=== PATIENT | male | born 1990 | race Caucasian/White ===

== ENCOUNTER 2023-09-07 01:54 | Inpatient (IN) | payer MEDICAID ==
[~2023-09-07] VITALS: Ht 175.3 cm; Wt 113.4 kg
[2023-09-07 02:00] VITALS: BP 146/80; PULSE 125; RESP 13; TEMP 96.1; O2SAT 100
[2023-09-07 02:09] LABS: BASOPHILS # (AUTO) 0.1 K/uL (0.00-0.22); BASOPHILS % (AUTO) 0.6 % (0.0-2.0); EOSINOPHILS # (AUTO) 0.2 K/uL (0-0.4); EOSINOPHILS % (AUTO) 1.5 % (0.0-4.0); HEMATOCRIT 40.1 % (36-52); HEMOGLOBIN 13.8 g/dL (12.0-18.0); LYMPHOCYTES # (AUTO) 8.7 K/uL (2.0-11.5); MEAN CORPUSCULAR HEMOGLOBIN 32 pg (27-31); MEAN CORPUSCULAR HGB CONC 34 g/dL (33-37); MEAN CORPUSCULAR VOLUME 93.2 fL (80-94); MONOCYTES # (AUTO) 0.8 K/uL (0.8-1.0); MONOCYTES % (AUTO) 5.9 % (1.7-9.3); NEUTROPHILS # (AUTO) 4.5 K/uL (1.8-7.7); NEUTROPHILS % (AUTO) 31.5 % (42.2-75.2); PLATELET COUNT (AUTO) 273 K/uL (140-450); RED BLOOD CELL COUNT(AUTO) 4.31 MIL/uL (4.20-6.10); RED CELL DISTRIBUTION WIDTH 13.2 % (11.6-13.7); WHITE BLOOD COUNT (AUTO) 14.3 K/uL (4.8-10.8)
[2023-09-07] MEDS: NALOXONE PFS 2 MG/2 ML SYR IVP ONE ×4 (02:18→04:31)
[2023-09-07] MEDS: NACL 0.9% 1,000 ML IV ONE ×2 (02:18→03:09)
[2023-09-07 02:29] LABS: LYMPHOCYTES % (AUTO) 60.5 % (20.5-51.1)
[2023-09-07 02:33] LABS: ANION GAP 17.2 (8-16); CALCIUM 7.8 mg/dL (8.5-10.1); CARBON DIOXIDE 22.8 mmol/L (21-32); CREATININE 1.2 mg/dL (0.6-1.3)
[2023-09-07 02:37] LABS: ACETAMINOPHEN < 0.5 ug/ml (10-30); ALCOHOL, BLOOD 12 mg/dL (<10); SALICYLATE < 2.8 mg/dL (2.8-20.0)
[2023-09-07 04:10] LABS: AMPHETAMINE, URINE NEGATIVE ng/ml (NEG <=1000); BARBITURATE, URINE NEGATIVE ng/ml (NEG <=200); BENZODIAZEPINE, URINE NEGATIVE ng/mL (NEG <=200); CANNABINOID, URINE POSITIVE ng/mL (NEG <=50); COCAINE, URINE NEGATIVE ng/mL (NEG <=300); OPIATE, URINE NEGATIVE ng/mL (NEG <=2000); PHENCYCLIDINE SCREEN,URINE NEGATIVE ng/mL (NEG <=25)
[2023-09-07] MEDS: NALOXONE PFS IV ONE ×2 (04:10→11:41)
[2023-09-07] MEDS: NACL 0.9% IV ONE ×2 (04:10→11:41)
[2023-09-07] MEDS: ONDANSETRON 4 MG/2 ML VIAL IVP ONE (05:13)
[2023-09-07] MEDS: NALOXONE PFS 2 MG/2 ML SYR ONE (08:57)
[2023-09-07] MEDS: NACL 0.9% 1,000 ML IV SCH (09:08)
[2023-09-07] MEDS ORDERED: HYDROcodone/APAP 5/325 MG 1 TAB TAB PO PRN (11:15)
[2023-09-07] MEDS ORDERED: ONDANSETRON 4 MG/2 ML VIAL IVP PRN (11:15)
[2023-09-07] MEDS ORDERED: KCL 20 MEQ IN 100 mL PREMIX 200 ML IV PRN (11:15)
[2023-09-07] MEDS ORDERED: POLYETHYLENE GLYCOL 17 GM/PKT PO PRN (11:15)
[2023-09-07] MEDS ORDERED: MELATONIN 3 MG TAB PO PRN (11:15)
[2023-09-07] MEDS ORDERED: MAG SULF 2000 MG/WATER PREMIX 50 ML IV PRN (11:15)
[2023-09-07] MEDS ORDERED: MORPHINE SULFATE 2 MG/ML SYR IVP PRN (11:15)
[2023-09-07] MEDS ORDERED: ACETAMINOPHEN 325 MG TAB PO PRN (11:15)
[2023-09-07 13:50] VITALS: BP 140/72; PULSE 102; RESP 10; TEMP 98.2; O2SAT 96
== END 2023-09-07 13:50 | disposition left against medical advice (07) | DRG 812 ==
LOC: MED 01:54 → MTU 05:24
PROVIDERS: ADMIT Student in an Organized Health Care Education/Training Program; ATTEND Student in an Organized Health Care Education/Training Program
DX: T50.991A Poisoning by other drugs, medicaments and biological substances, accidental (unintentional), initial encounter (principal); J96.01 Acute respiratory failure with hypoxia; G93.41 Metabolic encephalopathy; F19.10 Other psychoactive substance abuse, uncomplicated; Y92.89 Other specified places as the place of occurrence of the external cause; Z79.899 Other long term (current) drug therapy; E87.6 Hypokalemia
CPT/HCPCS: 36415; 70450; 80048; 80305; 85025; 93005; 96374; 96375; 96376; 99291; 99292; G0480; G0482; J2310; J2405; J7030